=== PATIENT | male | born 1945 | race Caucasian/White ===

== ENCOUNTER 2020-12-01 15:35 | Emergency (ER) | payer OTHER ==
--- OUTSIDE RECORDS SUMMARY | 2020-12-01 15:38 | XMS REPORT | Continuity of Care Document ---
:1945 Author Organization [facility] t Address [address] [place] [address] Care Team Providers Name Role Phone Unavailable Unavailable Unavailable Problems This patient has no known problems. Allergies, Adverse Reactions, Alerts This patient has no known allergies or adverse reactions. Medications Ordered Filled Start Stop Current Ordering Indication Dosage Frequency Signature Comments Components Source Medication Medication Date Date Medication? Clinician (SIG) Name Name Delzicol Delzicol Yes Kevin [address] [facility] Tylenol Tylenol Yes Kevin [address] [facility] Extra Extra [facility] as needed [facility] Motrin IB Motrin IB Yes Kevin [address] [facility] with food [facility] - or milk as [facility] needed l [facility] Probiotic Probiotic Yes Kevin not [facility] Pearls [facility] Multivitami Multivitami Yes Kevin not [facility] n [facility] defined [facility] Omeprazole Omeprazole Yes Kevin [address] [facility] Gabapentin Gabapentin Yes Kevin [address] [facility] Melatonin Melatonin Yes Kevin [address] [facility] at bedtime [facility] as needed [facility] with food l [facility] Amitriptyli Amitriptyli Yes Kevin [address] [facility] ne HCl ne HCl [facility] at bedtime [facility] Lotrel Lotrel Yes Kevin TAKE [address] [facility] CAPSULE BY [facility] EVERY DAY [facility] Centrum Centrum Yes Kevin not [facility] Silver Silver [facility] defined [facility] Pravastatin Pravastatin Yes Kevin TAKE [address] [facility] Sodium Sodium [facility] TABLET BY [facility] Procedures This patient has no known procedures. Encounters Start End Encounter Admission Attending Care Care Encounter Source Date/Time Date/Time Type Type Clinicians Facility Department ID 2020-11-05 2020-11-05 Outpatient [facility] [id number] [facility] 2020-09-24 2020-09-24 [facility] [id number] [facility] 2020-09-15 2020-09-15 [facility] [id number] [facility] 2020-06-29 2020-06-29 [facility] [id number] [facility] 2020-06-25 2020-06-25 [facility] [id number] [facility] 2020-06-18 2020-06-18 [facility] [id number] [facility] 2020-06-17 2020-06-17 [facility] [id number] [facility] 2020-05-25 2020-05-25 Out[facility] [id number] [facility] 2020-05-17 2020-05-17 Out[facility] [id number] [facility] 2020-05-132020-05-13 Out[facility] [id number] [facility] 2020-03-17 2020-03-17 [facility] [id number] [facility] 2019-12-10 2019-12-10 [facility] [id number] [facility]00 [facility] 2019-12-10 2019-12-10 [facility] [id number] [facility] 08[facility]00 [facility] 2019-08-22 2019-08-22 [facility] [id number] 10[facility]00 [facility] Results This patient has no known results.
--- NOTE | 2020-12-01 16:53 | RAD REPORT ---
EXAM DESCRIPTION: CT - Stone Protocol - 12/01/2020 4:26 pm CLINICAL HISTORY: Abdominal pain. COMPARISON: None. TECHNIQUE: Computed axial tomography of the abdomen pelvis was obtained without oral or IV contrast. Lack of IV and oral contrast limits evaluation of solid organs, bowel, and vessels. Coronal reformat reese images were obtained and reviewed. All CT scans are performed using dose optimization technique as appropriate and may include automated exposure control or mA/KV adjustment according to patient size. FINDINGS: Mild right hydronephrosis. The right ureter is dilated. A renal calculus is not seen. An u reteral calculus is not noted. A bladder calculus is not present. Left renal cyst The liver, spleen, pancreas and adrenals appear grossly normal There is no evidence of diverticulitis. The appendix appears normal Small inguinal hernias contain fat. Duodenal diverticulum. Spondylosis involves lumbar spine resultin g spinal stenosis IMPRESSION: Mild right hydronephrosis and right hydroureter. This may be secondary to a recently pas sed ureteral calculus.
[2020-12-01 17:14] LABS: Urine Blood Trace-lysed (Negative); Urine Glucose Negative (Negative); Urine Protein Negative (Negative)
[2020-12-01] MEDS ORDERED: ONDANSETRON 4 MG/2 ML VIAL ONE (17:42)
[2020-12-01] MEDS ORDERED: KETOROLAC 30 MG/ML INJ ONE (17:43)
[2020-12-01 17:55] LABS: Potassium 3.4 mmol/L (3.5-5.1)
[2020-12-01 18:27] LABS: Absolute Lymphocytes (CBC) 0.9 K/uL (0.7-4.9); Basophils % 0.6 % (0-1.3); Hematocrit 37.2 % (39.6-49.0); Lymphocytes % 8.5 % (15.3-44.8); MPV 9.8 fL (7.6-11.3); RBC Red Blood Cell Count 3.66 M/uL (4.33-5.43)
--- NOTE | 2020-12-01 19:03 | EDPHYS ---
Physician Documentation [facility] Name: Dima Turcios Age: 75 yrs Sex: Male : 1945 Arrival Date: 12/01/2020 Time: 15:38 Bed 18 Private MD: ED Physician Fernandez Dietz HPI: 12/01 18:38 This 75 yrs old Male presents to ER via Ambulatory with complaints of Flank jr8 Pain. 18:38 The patient complains of pain in the right flank. The pain does not radiate. Onset: The jr8 symptoms/episode began/occurred acutely, today. Modifying factors: The symptoms are alleviated by nothing. the symptoms are aggravated by movement. Associated signs and symptoms: The patient has no apparent associated signs or symptoms. Severity of pain: At its worst the pain was moderate in the emergency department the pain has improved mildly. The patient has not experienced similar symptoms in the past. The patient has not recently seen a physician. Historical: - Allergies: 16:12 No Known Allergies; jl7 - PMHx: 16:12 Hypertensive disorder; high cholesterol; jl7 - Immunization history:: Adult Immunizations up to date, Client reports receiving the 2nd dose of the Covid vaccine. - Social history:: Smoking status: Patient denies any tobacco usage or history of. ROS: 18:38 Eyes: Negative for injury, pain, redness, and discharge, ENT: Negative for injury, jr8 pain, and discharge, Neck: Negative for injury, pain, and swelling, Cardiovascular: Negative for chest pain, palpitations, and edema, Respiratory: Negative for shortness of breath, cough, wheezing, and pleuritic chest pain, Abdomen/GI: Negative for abdominal pain, nausea, vomiting, diarrhea, and constipation, MS/Extremity: Negative for injury and deformity, Skin: Negative for injury, rash, and discoloration, Neuro: Negative for headache, weakness, numbness, tingling, and seizure. 18:38 Back: Positive for flank pain, on the right. Exam: 18:38 Constitutional: This is a well developed, well nourished patient who is awake, alert, jr8 and in no acute distress. Cardiovascular: Regular rate and rhythm with a normal S1 and S2. No gallops, murmurs, or rubs. Normal PMI, no JVD. No pulse deficits. Respiratory: Lungs have equal breath sounds bilaterally, clear to auscultation and percussion. No rales, rhonchi or wheezes noted. No increased work of breathing, no retractions or nasal flaring. Abdomen/GI: Soft, non-tender, with normal bowel sounds. No distension or tympany. No guarding or rebound. No evidence of tenderness throughout. Skin: Warm, dry with normal turgor. Normal color with no rashes, no lesions, and no evidence of cellulitis. MS/ Extremity: Pulses equal, no cyanosis. Neurovascular intact. Full, normal range of motion. Neuro: Awake and alert, GCS 15, oriented to person, place, time, and situation. Cranial nerves II-XII grossly intact. Motor strength 5/5 in all extremities. Sensory grossly intact. Cerebellar exam normal. Normal gait. 18:38 Back: pain, that is moderate, of the right flank, ROM is normal, normal spinal alignment noted, CVA tenderness, is absent, vertebral tenderness, is not appreciated. Vital Signs: 16:10 BP 124 / 72; Pulse 67; Resp 17; Temp 97.1; Pulse Ox 97% ; Weight 88.45 kg; Height 5 ft. jl7 10 in. (177.80 cm); Pain 9/10; 20:02 BP 141 / 74; Pulse 65; Resp 18; Temp 97.9; Pulse Ox 96% ; Pain 0/10; ms4 16:10 Body Mass Index 27.98 (88.45 kg, 177.80 cm) jl7 MDM: 17:29 Patient medically screened. 8 19:02 Data reviewed: vital signs, nurses notes, lab test result(s), radiologic studies, CT jr8 scan. Data interpreted: Pulse oximetry: on room air is 97 %. Interpretation: normal. Counseling: I had a detailed discussion with the patient and/or guardian regarding: the historical points, exam findings, and any diagnostic results supporting the discharge/admit diagnosis, lab results, radiology results, the need for outpatient follow up, a urologist, to return to the emergency department if symptoms worsen or persist or if there are any questions or concerns that arise at home. Response to treatment: the patient's symptoms have markedly improved after treatment. 12/01 17:14 Order name: Urine Dipstick-Ancillary; Complete Time: 17:16 EDMS 12/01 17:17 Order name: CBC with Diff; Complete Time: 18:37 jr8 12/01 16:14 Order name: CT Stone Protocol; Complete Time: 17:16 jl7 12/01 17:17 Order name: Basic Metabolic Panel; Complete Time: 18:37 jr8 12/01 17:17 Order name: IV; Complete Time: 17:24 jr8 Administered Medications: 17:24 Drug: Ketorolac 15 mg Route: IVP; Site: right antecubital; tr6 18:29 Follow up: Response: Pain is decreased tr6 17:24 Drug: Zofran (Ondansetron) 4 mg Route: IVP; Site: right antecubital; tr6 18:29 Follow up: Response: No adverse reaction tr6 Disposition: 12/02 07:21 Co-signature as Attending Physician, Fernandez Dietz MD I agree with the assessment and kdr plan of care. Disposition Summary: 12/01/20 19:03 Discharge Ordered Location: Home jr8 Problem: new jr8 Symptoms: have improved jr8 Condition: Stable jr8 Diagnosis - Hydroureter jr8 Followup: jr8 - With: Private Physician - When: 2 - 3 days - Reason: Recheck today's complaints, Continuance of care, Re-evaluation by your physician Discharge Instructions: - Discharge Summary Sheet jr8 - Hydronephrosis jr8 Forms: - Medication Reconciliation Form jr8 - Thank You Letter jr8 - Antibiotic Education jr8 - Prescription Opioid Use jr8 Signatures: Dispatcher [employer] Fernandez Aguilar MD MD kdr Roszak, Josh, PA PA jr8 Louis Russo RN RN jl7 Sandy Faulkner RN RN tr6
--- NOTE | 2020-12-01 19:03 | ER ---
Nurse's Notes [facility] Name: Dima Turcios Age: 75 yrs Sex: Male : 1945 Arrival Date: 12/01/2020 Time: 15:38 Bed 18 Private MD: Diagnosis: Hydroureter Presentation: 12/01 16:10 Chief complaint: Patient states: Right flank pain, radiates to groin, denies urinary jl7 symptoms. Coronavirus screen: Client denies travel out of the [place] in the last 14 days. At this time, the client does not indicate any symptoms associated with coronavirus-19. Ebola Screen: No symptoms or risks identified at this time. Initial Sepsis Screen: Does the patient meet any 2 criteria? No. Patient's initial sepsis screen is negative. Does the patient have a suspected source of infection? No. Patient's initial sepsis screen is negative. Risk Assessment: Do you want to hurt yourself or someone else? Patient reports no desire to harm self or others. Onset of symptoms was December 01, 2020. 16:10 Method Of Arrival: Ambulatory jl7 16:10 Acuity: ANGLE 3 jl7 Triage Assessment: 17:33 General: Appears uncomfortable, Behavior is calm, cooperative, appropriate for age. tr6 Pain: Complains of pain in right flank. EENT: No deficits noted. Neuro: No deficits noted. Cardiovascular: No deficits noted. Respiratory: No deficits noted. GI: No deficits noted. : No deficits noted. Derm: No deficits noted. Musculoskeletal: No deficits noted. Historical: - Allergies: 16:12 No Known Allergies; jl7 - PMHx: 16:12 Hypertensive disorder; high cholesterol; jl7 - Immunization history:: Adult Immunizations up to date, Client reports receiving the 2nd dose of the Covid vaccine. - Social history:: Smoking status: Patient denies any tobacco usage or history of. Screenin:33 Abuse screen: Denies threats or abuse. Denies injuries from another. Nutritional tr6 screening: No deficits noted. Tuberculosis screening: No symptoms or risk factors identified. Fall Risk None identified. Assessment: 18:30 Reassessment: see triage assessment Patient states feeling better. tr6 20:01 Neuro: Level of Consciousness is awake, alert. ms4 Vital Signs: 16:10 BP 124 / 72; Pulse 67; Resp 17; Temp 97.1; Pulse Ox 97% ; Weight 88.45 kg; Height 5 ft. jl7 10 in. (177.80 cm); Pain 9/10; 20:02 BP 141 / 74; Pulse 65; Resp 18; Temp 97.9; Pulse Ox 96% ; Pain 0/10; ms4 16:10 Body Mass Index 27.98 (88.45 kg, 177.80 cm) jl7 ED Course: 15:38 Patient arrived in ED. ds1 16:11 Triage completed. jl7 16:12 Arm band placed on right wrist. jl7 16:26 CT Stone Protocol In Process Unspecified. EDMS 16:59 Sandy Faulkner, ANDREA is Primary Nurse. tr6 17:16 Venu Hill PA is PHCP. jr8 17:16 Fernandez Dietz MD is Attending Physician. jr8 17:33 Resting quietly. Awaiting lab results. tr6 17:33 Patient has correct armband on for positive identification. Bed in low position. Call tr6 light in reach. Side rails up X 1. Pulse ox on. NIBP on. Door closed. Noise minimized. Visitors limited. Lights dimmed. Moved to private room. Warm blanket given. Diet: Patient is NPO. 17:33 No provider procedures requiring assistance completed. Inserted saline lock: 18 gauge tr6 in right antecubital area, using aseptic technique. Blood collected. 20:02 IV discontinued, intact, bleeding controlled, No redness/swelling at site. Pressure ms4 dressing applied. Administered Medications: 17:24 Drug: Ketorolac 15 mg Route: IVP; Site: right antecubital; tr6 18:29 Follow up: Response: Pain is decreased tr6 17:24 Drug: Zofran (Ondansetron) 4 mg Route: IVP; Site: right antecubital; tr6 18:29 Follow up: Response: No adverse reaction tr6 Outcome: 19:03 Discharge ordered by . jr8 20:01 Discharged to home ambulatory. ms4 20:01 Condition: stable 20:01 Discharge instructions given to patient, Instructed on discharge instructions, follow up and referral plans. 20:02 Patient left the ED. ms4 Signatures: Dispatcher [employer] [facility] Desirae Orr ds1 Venu Hill PA PA jr8 Louis Russo RN RN jl7 Sandy Faulkner RN RN tr6 Chey Borrego RN RN ms4 Corrections: (The following items were deleted from the chart) 18:30 17:00 General: Appears lee tr6
[2020-12-01 20:15] VITALS: BP 141/74; TEMP 97.9; O2SAT 96
== END 2020-12-01 20:02 | disposition home or self-care (01) ==
LOC: ER 15:35
DX: N13.4 Hydroureter (principal); I10 Essential (primary) hypertension
CPT/HCPCS: 85025; 80048; 36415; 81003; 76377; 74176; 96375; 96374; 99284; J2405

== ENCOUNTER 2021-02-01 06:58 | Day surgery (SDC) | payer OTHER ==
--- NOTE | 2021-01-27 16:45 | RAD REPORT ---
EXAM DESCRIPTION: RAD - Chest Pa And Lat (2 Views) - 01/27/2021 4:30 pm CLINICAL HISTORY: Pre Op pending Turp COMPARISON: September 2007 TECHNIQUE: Frontal and lateral views of the chest were obtained. FINDINGS: The lungs are clear. Interstitial pattern has not changed significantly over this long in terval. Heart size is normal and central vasculature is within normal limits. No pleural effusion or pneumothorax seen. No acute bony finding noted. No aortic abnormality. IMPRESSION: No acute cardiopulmonary process.
[2021-01-27 16:46] LABS: Absolute Lymphocytes (CBC) 0.9 K/uL (0.7-4.9); Basophils % 0.3 % (0-1.3); Hematocrit 32.3 % (39.6-49.0); Lymphocytes % 10.1 % (15.3-44.8); MPV 9.3 fL (7.6-11.3)
[2021-01-27 16:47] LABS: Protime INR 1.03
[2021-02-01] MEDS ORDERED: GENTAMICIN IV ONE (07:45)
[2021-02-01] MEDS ORDERED: Ringers Lactate 1,000 ML IV ONE ×2 (07:52→09:57)
[2021-02-01] MEDS ORDERED: AMPICILLIN SODIUM 2 GM in NA CHLORIDE 0.9% 100 ML IVPB ONE (08:00)
[2021-02-01] MEDS ORDERED: Gentamicin Inj 200 MG in NA CHLORIDE 0.9% 100 ML IV ONE (08:00)
[2021-02-01] MEDS ORDERED: FENTANYL CITR 100 MCG/2 ML ONE (08:32)
[2021-02-01] MEDS ORDERED: propofoL 200 MG/20 ML VIAL IV ONE (08:32)
[2021-02-01] MEDS ORDERED: LIDOCAINE 1% MPF 5 ML VIAL ONE (08:32)
[2021-02-01] MEDS ORDERED: MIDAZOLAM HCL 2 MG/2 ML INJ ONE (08:32)
[2021-02-01] MEDS ORDERED: dexAMETHasone 10 MG/ML VIAL ONE (09:22)
[2021-02-01] MEDS ORDERED: ROCURONIUM 50 MG/5 ML VIAL IV ONE (09:47)
[2021-02-01] MEDS ORDERED: PHENAZOPYRIDINE 100MG TAB PO ONE ×2 (10:28→11:34)
[2021-02-01] MEDS ORDERED: OPIUM/BELLADONNA SUPPOS (30-16.2 MG) PR ONE (10:28)
[2021-02-01] MEDS ORDERED: CODEINE 30MG/APAP 300MG TAB PO PRN (10:28)
[2021-02-01] MEDS ORDERED: CODEINE 30MG/APAP 300MG TAB ONE (11:34)
[2021-02-01 13:13] VITALS: BP 121/67; TEMP 96.8; O2SAT 95
--- NOTE | 2021-02-03 10:10 | OP ---
Date of Procedure: 02/01/2021 Surgeon: SUSANNE COTO Preoperative Diagnoses: 1.BPH with obstructing lower urinary tract symptoms. 2.Recurrent urinary tract infections. Postoperative Diagnoses: 1.BPH with obstructing lower urinary tract symptoms. 2.Recurrent urinary tract infections. Principal Procedures: 1.Cystoscopy with bladder irrigation. 2.Bipolar transurethral resection of the prostate. Indication For Procedure: Mr. Turcios is a 75-year-old gentleman with multiple medical comorbidities inclusive of ulcerative colitis who has had issues of obstructive lower urinary symptoms associated with recurrent urinary tract infections. He has been treated on multiple occasions for that urinary tract infection in my time with the patient and after cystoscopic evaluation revealing the presence o f significant lateral lobar hypertrophy with median lobar intravesical projection abutting the trigon e, I counseled him on the benefit to surgical therapy for his prostate since he was on maximal medica l therapy with Proscar and Flomax. Although we must consider the potential that should he continue t o have infections even after treatment of his prostate, there may be the potential for fistula given his history of ulcerative colitis. Procedure In Detail: The patient was consented in the preoperative holding area before being transfe rred to the operative suite where general anesthesia was induced. He was given ampicillin 2 g and ge ntamicin 240 mg IV antimicrobial prophylaxis. Pneumo boots were provided for DVT prophylaxis. He wa s placed supine on the procedure table and then in the lithotomy position, padded and secured to the table appropriately. The case was begun after his genitalia was prepped using Hibiclens and draped i n standard fashion. Using urethral sounds to dilate the meatus and fossa navicularis to 30-Nigerien, a fter which, using the visual looping machine operator and 26-Nigerien resectoscope sheath, under direct vision, I was a ble to navigate the resectoscope via the urethra and into the bladder. The bladder was noted to have significantly residual cloudy and odiferous urine despite prior antimicrobial therapy provided on in preparation for this operative excursion. The patient did confirm he had taken at least 2 do ses of the antimicrobial prior to the day. As a result, I irrigated his bladder decompressing it of all of the cloudy and odiferous urine making an assessment as to whether I would proceed with the tra nsurethral resection today or cancel and return at a future event once his urine was clear of infecti on. However, after irrigating his bladder, I was able to clear it, and there was no significant evid ence of ongoing inflammatory change with the mucosa within the bladder or prostatic urethra indicativ e of severe tissue related infection. Also, since the patient was largely asymptomatic, to prevent f uture episodes of frequent recurrent infections as he had been experiencing, I elected to proceed. Then, utilizing the thick loop bipolar resectoscope, resection of the median lobar projection into th e bladder was then performed and taken down to the level of the verumontanum taking care to spare the ureteral orifices bilaterally. The remainder of the median bar was then resected down to the level of the verumontanum until a smooth trough was created. I then continued the resection of the left la teral lobe to the anterior overhanging tissue and intravesical projection which was also resected. I similarly resected the right lateral lobe until a nice trough was created. Careful fulguration of a ny bleeding vessels was performed and then all prostate chips were Ellik evacuated from the bladder. Then, with his bladder decompressed, further fulguration of any venous ooze was performed until the prostatic fossa was completely hemostatic. I then left his bladder full and placed a 24-Nigerien 3-way Donis catheter into his bladder with ease and with 40 cc of sterile water in the balloon. The patie nt was then taken out of the lithotomy position, the catheter was placed to moderate traction, he was then transferred to a stretcher and then to the recovery room in good condition. Complications: None. Estimated Blood Loss: Less than 25 cc. Discharge Disposition: He will continue the Augmentin prescribed preoperatively and follow up [facility] on Sunday or Sunday for a voiding trial with nurse practitioner, Ale. Subsequent fo llowup may be established with me in approximately 3 months later where we will obtain a repeat urine culture to confirm clearance of any infection and lack of recurrence of his urinary tract infections . He may continue on the Flomax for an additional 1 month following the procedure until his symptoms stabilize, but the finasteride should be continued for 6 months to stabilize the prostatic fossa, th en it can be discontinued. WR/MODL Voice ID: [id number] Report ID: [id number]
== END 2021-02-01 12:18 | disposition home or self-care (01) ==
LOC: PRE 06:58 → OR 12:18
PROVIDERS: ATTEND Urology
PROC: 0T7D8ZZ Dilation of Urethra, Via Natural or Artificial Opening Endoscopic (ICD-10-PCS; 2021-02-01)
PROC: 0VT08ZZ Resection of Prostate, Via Natural or Artificial Opening Endoscopic (ICD-10-PCS; principal; 2021-02-01 08:30)
DX: C61 Malignant neoplasm of prostate (principal); N39.0 Urinary tract infection, site not specified; Z20.822 Contact with and (suspected) exposure to COVID-19
CPT/HCPCS: 93005; 87088; 85025; 87086; 80048; 36415; 85610; 88305; 87077; 87186; 71046; 52601; 52281; U0003; J2704; J1580; J2250; J3010; J1100; J7120 ×2; J0290